=== PATIENT | male | born 1990 | race Caucasian/White ===

== ENCOUNTER 2017-02-24 02:43 | Emergency (ER) | payer SELFPAY ==
[2017-02-24 03:01] VITALS: BP 104/68; PULSE 82; TEMP 97.8; BMI 29.8
--- NOTE | 2017-02-24 04:04 | PDOC ---
Attending Attestation - Resident Resident Name: CuauhtemoczuleykaCarlos - HPI HPI: 02/24/17 04:02 Pt comes with a lac to his right lateral head. Rolled over in his twin size bed and hit head on side table. - Physicial Exam PE: 02/24/17 04:03 Agree with resident note. - Medical Decision Making 02/24/17 04:03 4 kaykay placed by the reisdent. No abx; tdap given good for 10 yrs. Follow with PMD for wound check Staple removal in 10 days
--- NOTE | 2017-02-24 04:09 | PDOC ---
History of Present Illness - General Chief Complaint: Laceration Stated Complaint: BLEEDING TO HEAD Time Seen by Provider: 02/24/17 02:57 History Source: Patient Exam Limitations: No Limitations - History of Present Illness Initial Comments: 02/24/17 04:04 The patient is a 26M with no PMH who presents to the ED after sustaining a laceration to his head. The patient states that he was rolling in his bed when he rolled out and hit his head on the nightstand. No LOC. Not on blood thinners. The patient denies any CP, SOB, fever, chills, numbness, tingling, weakness. Past History - Past Medical History Allergies/Adverse Reactions: Allergies Allergy/AdvReac Type Severity Reaction Status Date / Time No Known Allergies Allergy Verified 02/24/17 02:59 Home Medications: Ambulatory Orders NK [No Known Home Medication] 09/16/15 Cardiac Disorders: Yes - Surgical History Gastric Stapling: Yes (gastric bypass) - Suicide/Smoking/Psychosocial Hx Smoking Status: No Smoking History: Never smoked Have you smoked in the past 12 months: No Number of Cigarettes Smoked Daily: 5 Information on smoking cessation initiated: No 'Breaking Loose' booklet given: 09/16/15 Hx Alcohol Use: No Drug/Substance Use Hx: No Substance Use Type: None Hx Substance Use Treatment: No Review of Systems - Review of Systems Able to Perform ROS?: Yes Is the patient limited Telugu proficient: No Constitutional: No: Chills, Fever HEENTM: No: Blurred Vision Respiratory: No: Shortness of Breath, Wheezing Cardiac (ROS): No: Chest Pain, Syncope ABD/GI: No: Constipated, Diarrhea, Nausea, Vomiting : No: Burning, Dysuria Musculoskeletal: No: Back Pain, Neck Pain Neurological: Yes: Headache. No: Numbness, Tingling, Weakness *Physical Exam - Vital Signs Last Vital Signs Temp Pulse Resp BP Pulse Ox 97.8 F 82 14 104/68 96 02/24/17 02:59 02/24/17 02:59 02/24/17 02:59 02/24/17 02:59 02/24/17 02:59 - Physical Exam General Appearance: Yes: Nourished, Appropriately Dressed. No: Disheveled HEENT: positive: Normal Voice, Hearing Grossly Normal, Other (2cm lac on R parietal head) Respiratory/Chest: positive: Lungs Clear, Normal Breath Sounds Cardiovascular: positive: Regular Rhythm, Regular Rate, S1, S2. negative: Diastolic Murmur, Systolic Murmur Gastrointestinal/Abdominal: positive: Flat, Soft. negative: Tender Extremity: positive: Normal Inspection Integumentary: positive: Dry, Warm, Other (2 cm linar ) Neurologic: positive: web project manager II-XII NML intact, Fully Oriented, Alert, Normal Mood/ Affect, Normal Response, Motor Strength 5/5, Respond to painful stimul, Responsive, Finger to Nose (normal). negative: Abnormal Cranial NS, EOM Palsy, Facial Droop, Numbness, Sensory Deficit, Confused, Disoriented, Depressed Affect Procedures - Laceration/Wound Repair Right Upper Head Wound Length: to 2.5 cm Wound Explored: clean Wound's Depth, Shape: superficial, linear Anesthesia: 1% Lidocaine Wound Repaired With: Kaykay (4) Layer Closure: No Sterile Dressing Applied: No (bacitracin) Medical Decision Making - Medical Decision Making 02/24/17 04:18 The patient is a 26M with no PMH who presents with a head laceration. I cleaned , numbed, and stapled the laceration. The patient understands that he needs to follow up with his PCP in 10 days. Patient understands and knows to look out for fever, chills, drainage/pus, nausea, vomiting, and headache and to return if he has any of these. *DC/Admit/Observation/Transfer Diagnosis at time of Disposition: Laceration - Discharge Dispostion Disposition: HOME Condition at time of disposition: Stable Admit: No - Patient Instructions Printed Discharge Instructions: DI for Laceration Repair Additional Instructions: Please return to the ER if symptoms persist, worsen, or if new symptoms arise. Please follow up with your primary care doctor in 7-10 days to have the kaykay removed. Please return to the ER if you have any fever, chills, headache, pus drainage, nausea, or vomiting.
== END 2017-02-24 04:38 | disposition home or self-care (01) ==
LOC: JER 02:43
PROC: 0HQ0XZZ Repair Scalp Skin, External Approach (ICD-10-PCS; principal; 2017-02-24)
DX: S01.01XA Laceration without foreign body of scalp, initial encounter (principal); W22.8XXA Striking against or struck by other objects, initial encounter; Y93.89 Activity, other specified; Y92.032 Bedroom in apartment as the place of occurrence of the external cause
CPT/HCPCS: 99282-25

== ENCOUNTER 2018-06-25 07:09 | Emergency (ER) | payer SELFPAY ==
[2018-06-25 07:42] VITALS: BP 124/80; PULSE 73; TEMP 98.1; BMI 30.9
[2018-06-25] MEDS ORDERED: IBUPROFEN 400 MG TABLET (FP) PO ONE ×2 (08:00→08:03)
--- NOTE | 2018-06-25 08:00 | PDOC ---
History of Present Illness - General Chief Complaint: Hemorrhoids Stated Complaint: HEMORRHOIDS Time Seen by Provider: 06/25/18 07:51 History Source: Patient Exam Limitations: Clinical Condition - History of Present Illness Initial Comments: 06/25/18 08:10 Patient with history of gastric bypass in 2016 uncomplicated with history of hemorrhoids present with complaint of three-day history of hemorrhoids which has not been improving with [id number] hemorrhoid medication. Patient reported using Preparation H for hemorrhoids with no improvement. Patient report painful to sit due to the hemorrhoids. Patient report occasional constipation with last bowel movement last night. Patient denies nausea or vomiting or diarrhea. Patient denies fever or chills. Patient denies any other symptoms Timing/Duration: other Past History - Past Medical History Allergies/Adverse Reactions: Allergies Allergy/AdvReac Type Severity Reaction Status Date / Time No Known Allergies Allergy Verified 02/24/17 02:59 Home Medications: Ambulatory Orders Docusate Sodium [Colace] 100 mg PO BID #20 capsule 06/25/18 Lidocaine 5% Top. Ointment [Xylocaine 5% Top. Ointment -] 1 applic TP BID #1 tube 06/25/18 Witch Edita 50% (Tucks) [Tucks Witch Edita Pads] 40 pad TP TID PRN #40 pad 06/25 Cardiac Disorders: No COPD: No Other medical history: Hemmorroids - Surgical History Gastric Stapling: Yes (gastric bypass) - Immunization History Immunization Up to Date: No - Suicide/Smoking/Psychosocial Hx Smoking Status: No Smoking History: Unknown if ever smoked Have you smoked in the past 12 months: No Number of Cigarettes Smoked Daily: 5 Information on smoking cessation initiated: No 'Breaking Loose' booklet given: 09/16/15 Hx Alcohol Use: No Drug/Substance Use Hx: No Substance Use Type: None Hx Substance Use Treatment: No Review of Systems - Review of Systems Able to Perform ROS?: Yes Is the patient limited Vietnamese proficient: No Constitutional: No: Chills, Fever HEENTM: No: Symptoms Reported Respiratory: No: Symptoms reported Cardiac (ROS): No: Symptoms Reported ABD/GI: Yes: See HPI, Other (hemorrhoid). No: Nausea, Rectal Bleeding, Vomiting , Abdominal cramping : No: Symptoms Reported All Other Systems: Reviewed and Negative *Physical Exam - Vital Signs Last Vital Signs Temp Pulse Resp BP Pulse Ox 98.1 F 73 18 124/80 100 06/25/18 07:37 06/25/18 07:37 06/25/18 07:37 06/25/18 07:37 06/25/18 07:37 - Physical Exam Comments: 06/25/18 08:11 GENERAL: Well developed, well nourished. Awake and alert. mild acute distress. NECK: Supple. Full ROM. CARDIOVASCULAR: Regular rate and rhythm. No murmurs, rubs, or gallops. Distal pulses are 2+ and symmetric. PULMONARY: No evidence of respiratory distress. Lungs clear to auscultation bilaterally. No wheezing, rales or rhonchi. ABDOMINAL: Soft. Non-tender. Non-distended. No rebound or guarding. No organomegaly. Normoactive bowel sounds. : 2cm reduceable non-strangulated external hemorrhoid w/o bleeding. no anal fissure. SKIN: Warm and dry. No rashes. No jaundice. NEUROLOGICAL: Alert, awake, appropriate. Gait is normal without ataxia. PSYCHIATRIC: Cooperative. Good eye contact. Appropriate mood General Appearance: Yes: Nourished, Appropriately Dressed, Apparent Distress, Mild Distress Moderate Sedation - Procedure Monitoring Vital Signs: Procedure Monitoring Vital Signs Temperature 98.1 F 06/25/18 07:37 Pulse Rate 73 06/25/18 07:37 Respiratory Rate 18 06/25/18 07:37 Blood Pressure 124/80 06/25/18 07:37 O2 Sat by Pulse Oximetry (%) 100 06/25/18 07:37 Medical Decision Making - Medical Decision Making 06/25/18 08:13 Patient with history of gastric bypass 3 years ago and hemorrhoids present with complaint of three-day history of painful hemorrhoids which has not been improving with [id number] Preparation H medication. Exam significant for 2 cm reduceable and non-strangulating external hemorrhoid with no bleeding. No other lesions to rectal area. Patient is stable for outpatient treatment with tucks topical wipes, topical lidocaine for pain and Colace for constipation with GI follow-up. Motrin 800 mg by mouth given for pain. *DC/Admit/Observation/Transfer Diagnosis at time of Disposition: External hemorrhoid - Discharge Dispostion Disposition: HOME Condition at time of disposition: Stable Decision to Admit order: No - Prescriptions Prescriptions: Docusate Sodium [Colace] 100 mg PO BID #20 capsule Lidocaine 5% Top. Ointment [Xylocaine 5% Top. Ointment -] 1 applic TP BID #1 tube Witch Edita 50% (Tucks) [Tucks Witch Edita Pads] 40 pad TP TID PRN #40 pad PRN Reason: hemmorhoids - Referrals Referrals: Mert Montero MD [Staff Physician] - - Patient Instructions Printed Discharge Instructions: DI for Hemorrhoids Additional Instructions: This medication as prescribed. Apply topical lidocaine to area 2-3 times a day as needed for pain. Follow-up referred GI doctor if symptoms persist for more than 4 days - Post Discharge Activity
== END 2018-06-25 08:14 | disposition home or self-care (01) ==
LOC: JER 07:09
DX: K64.4 Residual hemorrhoidal skin tags (principal); Z98.84 Bariatric surgery status; Z72.0 Tobacco use
CPT/HCPCS: 99282-25